=== PATIENT | female | born 1980 | race Caucasian/White ===

== ENCOUNTER 2022-09-14 13:45 | Emergency (ER) | payer MEDICAID ==
[~2022-09-14] VITALS: Ht 157.5 cm; Wt 93.0 kg
[2022-09-14 13:55] VITALS: BP 110/51
[2022-09-14] MEDS ORDERED: METOCLOPRAMIDE 10 MG TAB ONE (14:20)
[2022-09-14] MEDS ORDERED: NACL 0.9% 1,000 ML IV ONE (14:35)
[2022-09-14 15:03] LABS: BASOPHILS % (AUTO) 0.6 % (0.0-2.0); EOSINOPHILS # (AUTO) 0.1 K/uL (0-0.4); EOSINOPHILS % (AUTO) 1.1 % (0.0-4.0); HEMATOCRIT 26.4 % (36-48); HEMOGLOBIN 7.9 g/dL (12.0-16.0); LYMPHOCYTES # (AUTO) 1.4 K/uL (2.5-16.5); LYMPHOCYTES % (AUTO) 21.8 % (20.5-51.1); MEAN CORPUSCULAR HEMOGLOBIN 18 pg (27-31); MEAN CORPUSCULAR HGB CONC 30 g/dL (33-37); MEAN CORPUSCULAR VOLUME 59.4 fL (80-94); MONOCYTES # (AUTO) 0.5 K/uL (0.8-1.0); MONOCYTES % (AUTO) 7.8 % (1.7-9.3); NEUTROPHILS # (AUTO) 4.5 K/uL (1.8-7.7); NEUTROPHILS % (AUTO) 68.7 % (42.2-75.2); PLATELET COUNT (AUTO) 384 K/uL (140-450); RED BLOOD CELL COUNT(AUTO) 4.44 MIL/uL (4.20-5.40); RED CELL DISTRIBUTION WIDTH 23.2 % (11.6-13.7); WHITE BLOOD COUNT (AUTO) 6.6 K/uL (4.8-10.8)
[2022-09-14] MEDS ORDERED: ONDANSETRON 4 MG/2 ML VIAL IVP ONE (15:10)
[2022-09-14 15:23] LABS: ALBUMIN 3.8 g/dL (3.4-5.0); ASPARTATE AMINOTRANSFERASE 26 U/L (15-37); CHLORIDE 104 mmol/L (98-107); CREATININE 0.6 mg/dL (0.6-1.3); GFR ARICAN-AMERICAN 142 mL/min (>90); GLUCOSE 99 mg/dL (74-106); SODIUM SERUM 138 mmol/L (136-145); TOTAL BILIRUBIN 0.6 mg/dL (0.0-1.0); UREA NITROGEN, BLOOD 13 mg/dL (7-18)
[2022-09-14] MEDS ORDERED: ONDA8TAB87 PO (15:37)
--- NOTE | 2022-09-14 16:16 | NUR ---
NO NAUSEA OR VOMITING WHILE IN ED
[2022-09-14 17:25] VITALS: BP 110/51
== END 2022-09-14 17:14 | disposition home or self-care (01) ==
LOC: MED 13:45 → EDBD 13:45 → MED 17:14
DX: D64.9 Anemia, unspecified (principal); R11.2 Nausea with vomiting, unspecified; R42 Dizziness and giddiness; Z79.899 Other long term (current) drug therapy
CPT/HCPCS: 36415; 80053; 81025; 82948; 84484; 85025; 86886; 86900; 86901; 96361; 96374; 99283; J2405; J8597